=== PATIENT | male | born 2000 | race Hispanic/Latino ===

== ENCOUNTER 2020-02-18 22:20 | Emergency (ER) | payer SELFPAY ==
[~2020-02-18] VITALS: Ht 170.2 cm; Wt 108.9 kg
== END 2020-02-18 22:54 | disposition home or self-care (01) ==
LOC: ER 22:46
DX: Z04.1 Encounter for examination and observation following transport accident (principal); S00.83XA Contusion of other part of head, initial encounter; V53.5XXA Driver of pick-up truck or van injured in collision with car, pick-up truck or van in traffic accident, initial encounter; Y92.488 Other paved roadways as the place of occurrence of the external cause
CPT/HCPCS: 99282